=== PATIENT | female | born 1945 | race Two or more races ===

== ENCOUNTER 2024-12-04 15:27 | Outpatient (AMB) | payer MEDICARE, MEDICAID, SELFPAY ==
--- NOTE | 2024-12-04 15:44 | MHC.OFFVIS ---
Intake Visit Reasons: 6 month tremor Accompanied by: Daughter Allergies No Known Allergies Allergy (Verified 12/04/24 15:47) Medication List - Last Reconciled 12/04/24 by Estefania Ibarra CNP aspirin 81 mg PO DAILY carbidopa-levodopa 25-100 mg 1 tab PO QID insulin glargine-yfgn 5 units subcut BEDTIME simvastatin 20 mg PO BEDTIME valsartan 40 mg PO DAILY HPI Comments Details: She was doing okay. Tremors are okay. No rest tremor. Some tremor when writing (right-handed), but less than before. Taking carbidopa-levodopa four times a day, no medication side effects. No functional impairment. No difficulty eating, drinking, or swallowing. No difficulty turning in bed or getting up from chair. Walking with cane, no falls. She was diagnosed with breast cancer and had partial R mastectomy on 05/21/2024. Complete resolution of RUE tremor at rest. She had tremor at rest in RUE for 6-12 months, noticeable when she was nervous. She has occasional balance problem. No tremor in legs or left upper extremities. No change in speech, swallowing, or drooling. No trouble turning in bed or walking. No cognitive decline. No history of head trauma. No family history of tremor. REPLACED BY [facility] Medical History (Updated 12/04/24 @ 15:46 by Estefania Ibarra CNP) Other specified forms of tremor Diabetes mellitus Parkinsonian tremor Benign essential tremor Physical Exam Const Other: General Appearance:? normal, in no acute distress. Heart:? S1, S2 normal, no murmurs. Lungs:? clear anteriorly and posteriorly. Musculoskeletal:? normal. Extremities:? no edema. Psych:? alert, oriented, cognitive function intact, cooperative with exam. Neuro Other: Abnormal Neurological Findings:?No resting tremor or tremor on sustained posture, complete resolution of a previous prominent 4 Hz resting tremor of right hand and arm. Slight tremor on R with finger to nose. No bradykinesia or rigidity. Walking with cane. Mental Status: alert and oriented X 3. Normal attention, orientation, memory, and affect. Cranial Nerves: Pupils are equal, round, and reactive to light. External ocular muscles are intact. Visual romero are full, no ptosis. Face is symmetrical, no facial weakness or droop. Facial sensations are normal. Tongue protrudes in midline. Palate elevates symmetrically. Shoulder shrugging is normal Motor Examination: Normal muscle tone, bulk and strength. No atrophy or fasciculations. No drift of the extended upper extremities. DTR 2+. Plantars are flexor. Sensory Exam: Normal light touch, temperature, pinprick, vibration, and joint-position sensations. Rhomberg sign is absent. Coordination: No ataxia. Gait Exam: With cane. Cerebellar Signs: [id number] with tremor on R. Extrapyramidal System: Tremor as above. No rigidity with normal facial expressions. No bradykinesia, no bradyphrenia. Normal arm swing and posture. No propulsion or retropulsion. Speech: Normal. Results Reviewed Results Reviewed: 02/2019 MRI brain shows white matter hyperintensities in the periventricular and deep white matter distribution, probably microvascular disease. Assessment & Plan Assessment & Plan (1) Parkinsonian tremor: Code(s): G20.C - Parkinsonism, unspecified Category: Medical Plan: Continue carbidopa-levodopa 25-100mg 1 tablet four times a day. (2) Benign essential tremor: Code(s): G25.0 - Essential tremor Category: Medical (3) Other specified forms of tremor: Code(s): G25.2 - Other specified forms of tremor Category: Medical Plan: Task specific tremor with primary writing tremor. Plan Meds tried: primidone (side effects) Coding Level of Care Code Est Pt Level 3 (40388) Diagnoses Parkinsonian tremor G20.C Benign essential tremor G25.0 Other specified forms of tremor G25.2
== END 2024-12-04 16:20 | disposition home or self-care (01) ==
LOC: HO.HSM 15:28
PROVIDERS: PCP Internal Medicine; Referring Provider Internal Medicine; Visit Provider Registered Nurse
DX: G20.C Parkinsonism, unspecified (principal); G25.0 Essential tremor; G25.2 Other specified forms of tremor
CPT/HCPCS: 99213

== ENCOUNTER → 2024-12-04 15:27 | Outpatient (BNVA) | payer MEDICARE, MEDICAID, SELFPAY | PROVIDERS: PCP Internal Medicine; Referring Provider Internal Medicine; Visit Provider Registered Nurse | DX: G25.2 Other specified forms of tremor (principal); G20.C Parkinsonism, unspecified | CPT/HCPCS: 99212 ==